=== PATIENT | female | born 1995 | race Caucasian/White ===

== ENCOUNTER 2016-10-21 00:40 | Emergency (ER) | payer OTHER ==
[~2016-10-21] VITALS: Ht 154.9 cm; Wt 59.4 kg
[2016-10-21] MEDS ORDERED: PHENERGAN25 MG/TAB PO (01:06)
[2016-10-21 01:22] LABS: HEMATOCRIT 40.7 % (37.0-47.0); HEMOGLOBIN 14.2 g/dl (12.0-16.0); IMMATURE GRANULOCYTES 0.2 % (0.0-1.0); MEAN CELL VOLUME 82.6 fL CALC (80.0-100.0); MEAN CORPUSCULAR HGB 28.8 pG CALC (26.0-32.0); MEAN CORPUSCULAR HGB CONC 34.9 g/L CALC (32.0-36.0); NEUT# 7.52 thou/uL (2.00-7.15); RED BLOOD COUNT 4.93 mill/uL (4.20-5.60)
[2016-10-21 01:32] LABS: ALBUMIN 4.7 g/dL (3.2-5.0); ALKALINE PHOSPHATASE 57 u/l (38-126); ANION GAP 22 (6-22 (CALC)); BILIRUBIN, TOTAL 0.5 mg/dL (0.0-1.4); BUN 8 mg/dL (8-21); BUN/CREATININE RATIO 14 (12-20 (CALC)); CARBON DIOXIDE 18 mmol/l (22-30); CHLORIDE 103 mmol/l (95-108); CREATININE 0.5 mg/dL (0.5-1.0); GFR > 60 ML/MIN (>=60 (CALC)); GFR FOR AFR.AMER. > 60 ML/MIN (>=60 (CALC)); GLUCOSE 88 mg/dL (70-106); POTASSIUM 4.2 mmol/l (3.5-5.1); SGOT/AST 14 u/l (14-36); SGPT/ALT 23 u/l (9-52); SODIUM 139 mmol/l (137-146); TOTAL PROTEIN 8.1 g/dL (6.3-8.2)
[2016-10-21] MEDS ORDERED: PHENERGAN25 M1 PR (01:44)
[2016-10-21] MEDS ORDERED: ZOFRAN ODT4 MG PO (01:44)
[2016-10-21 02:24] VITALS: BP 109/59
== END 2016-10-21 02:25 | disposition home or self-care (01) | DRG 781 ==
LOC: ED 00:40
PROVIDERS: Emergency Medicine
DX: O21.0 Mild hyperemesis gravidarum (principal); Z3A.12 12 weeks gestation of pregnancy

== ENCOUNTER 2016-12-08 15:33 | Emergency (ER) | payer OTHER ==
[~2016-12-08] VITALS: Ht 154.9 cm; Wt 58.0 kg
[~2016-12-08 15:33] MED LIST: PHENERGAN25 M1 PR; PHENERGAN25 MG/TAB PO; ZOFRAN ODT4 MG PO
[2016-12-08 17:10] LABS: HEMATOCRIT 33.9 % (37.0-47.0); HEMOGLOBIN 11.5 g/dl (12.0-16.0); IMMATURE GRANULOCYTES 0.3 % (0.0-1.0); MEAN CELL VOLUME 85.2 fL CALC (80.0-100.0); MEAN CORPUSCULAR HGB 28.9 pG CALC (26.0-32.0); MEAN CORPUSCULAR HGB CONC 33.9 g/L CALC (32.0-36.0); NEUT# 7.47 thou/uL (2.00-7.15); RED BLOOD COUNT 3.98 mill/uL (4.20-5.60)
[2016-12-08 17:47] LABS: ALBUMIN 3.8 g/dL (3.2-5.0); ALKALINE PHOSPHATASE 47 u/l (38-126); ANION GAP 17 (6-22 (CALC)); BILIRUBIN, TOTAL 0.6 mg/dL (0.0-1.4); BUN 5 mg/dL (8-21); BUN/CREATININE RATIO 11 (12-20 (CALC)); CALCIUM 9.2 mg/dL (8.4-10.2); CARBON DIOXIDE 20 mmol/l (22-30); CHLORIDE 105 mmol/l (95-108); CREATININE 0.5 mg/dL (0.5-1.0); GFR > 60 ML/MIN (>=60 (CALC)); GFR FOR AFR.AMER. > 60 ML/MIN (>=60 (CALC)); GLUCOSE 78 mg/dL (70-106); POTASSIUM 3.7 mmol/l (3.5-5.1); SGOT/AST 14 u/l (14-36); SGPT/ALT 23 u/l (9-52); SODIUM 137 mmol/l (137-146); TOTAL PROTEIN 6.8 g/dL (6.3-8.2)
[2016-12-08 18:01] LABS: URINE BILIRUBIN - DIPSTICK NEGATIVE (NEGATIVE); URINE BLOOD DIPSTICK SMALL (NEGATIVE); URINE COLOR YELLOW; URINE GLUCOSE - DIPSTICK NEGATIVE (NEGATIVE); URINE KETONE >=80 mg/dL (NEGATIVE); URINE NITRITE - DIPSTICK NEGATIVE (Negative); URINE PH 5.5 (4.5-8.0); URINE PROTEIN - DIPSTICK TRACE mg/dL (NEG-TRACE); URINE SPECIFIC GRAVITY >=1.030; URINE UROBILINOGEN - DIPSTICK 0.2 E.U./dL (0.2)
[2016-12-08 18:06] LABS: URINE CLARITY CLOUDY; URINE LEUK ESTERASE SMALL (NEGATIVE)
[2016-12-08 18:16] LABS: URINE BACTERIA RARE hpf; URINE SQUAMOUS EPITHELIAL CELL FEW EPI/hpf (0-FEW)
[2016-12-08] MEDS ORDERED: CEPHALEXIN500 MG PO (18:24)
[2016-12-08 18:58] VITALS: BP 114/65
[2016-12-09] MEDS ORDERED: ZOFRAN ODT4 MG PO (18:04)
== END 2016-12-08 18:58 | disposition home or self-care (01) | DRG 781 ==
LOC: ED 15:33
PROVIDERS: Emergency Medicine
DX: O23.42 Unspecified infection of urinary tract in pregnancy, second trimester (principal); Z3A.19 19 weeks gestation of pregnancy

== ENCOUNTER 2016-12-09 17:35 | Inpatient (IN) | payer OTHER ==
[~2016-12-09] VITALS: Ht 154.9 cm; Wt 52.5 kg
[~2016-12-09 17:35] MED LIST changes: +CEPHALEXIN500 MG PO
[2016-12-09] MEDS ORDERED: ZOFRAN ODT4 MG PO (18:04)
[2016-12-09 18:38] LABS: HEMATOCRIT 34.8 % (37.0-47.0); HEMOGLOBIN 11.8 g/dl (12.0-16.0); IMMATURE GRANULOCYTES 0.3 % (0.0-1.0); MEAN CELL VOLUME 85.5 fL CALC (80.0-100.0); MEAN CORPUSCULAR HGB CONC 33.9 g/L CALC (32.0-36.0); NEUT# 8.34 thou/uL (2.00-7.15); RED BLOOD COUNT 4.07 mill/uL (4.20-5.60); RED CELL DISTRI WIDTH 13.2 % (11.5-15.5)
[2016-12-09 18:48] LABS: ALBUMIN 4.2 g/dL (3.2-5.0); ALKALINE PHOSPHATASE 55 u/l (38-126); ANION GAP 20 (6-22 (CALC)); BILIRUBIN, TOTAL 0.7 mg/dL (0.0-1.4); BUN 6 mg/dL (8-21); BUN/CREATININE RATIO 12 (12-20 (CALC)); CALCIUM 9.3 mg/dL (8.4-10.2); CARBON DIOXIDE 18 mmol/l (22-30); CHLORIDE 105 mmol/l (95-108); CREATININE 0.5 mg/dL (0.5-1.0); GFR > 60 ML/MIN (>=60 (CALC)); GFR FOR AFR.AMER. > 60 ML/MIN (>=60 (CALC)); GLUCOSE 81 mg/dL (70-106); POTASSIUM 3.9 mmol/l (3.5-5.1); SGOT/AST 12 u/l (14-36); SGPT/ALT 20 u/l (9-52); SODIUM 139 mmol/l (137-146); TOTAL PROTEIN 7.3 g/dL (6.3-8.2)
[2016-12-09 21:52] LABS: URINE BILIRUBIN - DIPSTICK NEGATIVE (NEGATIVE); URINE BLOOD DIPSTICK SMALL (NEGATIVE); URINE COLOR YELLOW; URINE GLUCOSE - DIPSTICK NEGATIVE (NEGATIVE); URINE KETONE >=80 mg/dL (NEGATIVE); URINE LEUK ESTERASE TRACE (NEGATIVE); URINE NITRITE - DIPSTICK NEGATIVE (Negative); URINE PROTEIN - DIPSTICK TRACE mg/dL (NEG-TRACE); URINE SPECIFIC GRAVITY >=1.030; URINE UROBILINOGEN - DIPSTICK 0.2 E.U./dL (0.2)
[2016-12-09 21:59] LABS: URINE CLARITY HAZY
[2016-12-09 22:06] LABS: URINE SQUAMOUS EPITHELIAL CELL FEW EPI/hpf (0-FEW)
[2016-12-09 22:55] VITALS: BP 112/56
[2016-12-10 03:50] VITALS: BP 120/65
[2016-12-10 06:11] LABS: HEMOGLOBIN 10.8 g/dl (12.0-16.0); IMMATURE GRANULOCYTES 0.4 % (0.0-1.0); MEAN CELL VOLUME 86.3 fL CALC (80.0-100.0); MEAN CORPUSCULAR HGB 29.1 pG CALC (26.0-32.0); MEAN CORPUSCULAR HGB CONC 33.8 g/L CALC (32.0-36.0); NEUT# 7.97 thou/uL (2.00-7.15); RED BLOOD COUNT 3.71 mill/uL (4.20-5.60); RED CELL DISTRI WIDTH 13.1 % (11.5-15.5)
[2016-12-10 06:20] LABS: ALBUMIN 3.2 g/dL (3.2-5.0); ALKALINE PHOSPHATASE 46 u/l (38-126); AMYLASE 32 u/l (30-110); ANION GAP 17 (6-22 (CALC)); BILIRUBIN, TOTAL 0.6 mg/dL (0.0-1.4); BUN 3 mg/dL (8-21); BUN/CREATININE RATIO 6 (12-20 (CALC)); CALCIUM 8.8 mg/dL (8.4-10.2); CARBON DIOXIDE 15 mmol/l (22-30); CHLORIDE 109 mmol/l (95-108); CREATININE 0.4 mg/dL (0.5-1.0); GFR > 60 ML/MIN (>=60 (CALC)); GFR FOR AFR.AMER. > 60 ML/MIN (>=60 (CALC)); GLUCOSE 76 mg/dL (70-106); LIPASE 266 u/l (23-300); SGOT/AST 28 u/l (14-36); SGPT/ALT 19 u/l (9-52); SODIUM 137 mmol/l (137-146)
[2016-12-10 07:35] VITALS: BP 106/47
[2016-12-10 16:00] VITALS: BP 108/60
[2016-12-10 19:15] VITALS: BP 114/69
[2016-12-11 03:25] VITALS: BP 105/64
[2016-12-11 08:11] LABS: HEMATOCRIT 30.1 % (37.0-47.0); HEMOGLOBIN 10.3 g/dl (12.0-16.0); IMMATURE GRANULOCYTES 0.4 % (0.0-1.0); MEAN CORPUSCULAR HGB 29.1 pG CALC (26.0-32.0); MEAN CORPUSCULAR HGB CONC 34.2 g/L CALC (32.0-36.0); NEUT# 6.34 thou/uL (2.00-7.15); RED BLOOD COUNT 3.54 mill/uL (4.20-5.60); RED CELL DISTRI WIDTH 13.2 % (11.5-15.5)
[2016-12-11 08:30] LABS: POTASSIUM 3.6 mmol/l (3.5-5.1)
[2016-12-11 15:50] VITALS: BP 103/62
[2016-12-11 19:10] VITALS: BP 101/59
[2016-12-12 03:53] VITALS: BP 102/56
[2016-12-12 07:58] VITALS: BP 111/58
[2016-12-12] MEDS ORDERED: PHENERGAN25 MG/TAB PO (08:40)
[2016-12-12] MEDS ORDERED: ZOFRAN ODT4 MG PO (08:41)
== END 2016-12-12 10:27 | disposition home or self-care (01) | DRG 781 ==
LOC: ED 17:35 → ED-I 22:20 → ED 22:35 → MS2 22:36
PROVIDERS: Emergency Medicine; ADMIT Obstetrics & Gynecology; ATTEND Obstetrics & Gynecology
DX: O21.0 Mild hyperemesis gravidarum (principal); K80.20 Calculus of gallbladder without cholecystitis without obstruction; O99.612 Diseases of the digestive system complicating pregnancy, second trimester; Z3A.19 19 weeks gestation of pregnancy